=== PATIENT | male | born 1940 | race Caucasian/White ===

== ENCOUNTER 2025-07-03 05:41 | Day surgery (SDC) | payer MEDICARE, OTHER ==
[2025-07-03] VITALS (7 sets, daily range): BP systolic 119–157; BP diastolic 67–96; PULSE 57–70; RESP 11–21; TEMP 97.1; O2SAT 95–98
[~2025-07-03] VITALS: Ht 188 cm; Wt 89.4 kg
[~2025-07-03 05:41] MED LIST: ACET-1025 PO; DOXA4TAB3 PO; ESCI-8 PO; MAGN400C PO; MEMA10TA22 PO; OMEP20CA16 PO; PREVAGEN PO; PSYL0.4C2 PO; TAMS-55 PO; VITAMIN C WITH ZINC PO; ringers solution, lacted 1,000 ML IV SCH
[2025-07-03] MEDS: ceFAZolin 2gm/dext,iso 50mL 50 ML IV ONE (06:00)
[2025-07-03 06:35] LABS: MEAN PLATELET VOLUME 7.5 FL (7.4-10.4); PRE OP HEMATOCRIT 37.0 % (42.0-52.0); PRE OP HEMOGLOBIN 12.4 g/dL (14.0-17.9); PRE OP PLATELET COUNT 312 X10'3 (140-440); PRE OP WHITE BLOOD COUNT 8.0 10'3 (4.8-10.8); RED CELL DISTRIBUTION WIDTH 15.0 % (11.5-14.5)
--- NOTE | 2025-07-03 06:36 | ELECTROCARDIOGRAPH REPORT ---
[facility] Test Date: 2025-07-03 Test Time: 06:34:46 Pat Name: BA WYATT Department: [facility] Patient ID: [id number] Room: Gender: M Catalog Librarian: arnaldo : 1940 Requested By: REMIGIO SMITH Order Number: [id number] Reading MD: Dr. Sergey Galan Measurements Intervals [place] Rate: 62 P: 73 NH: 158 QRS: 46 QRSD: 169 T: -11 QT: 489 QTc: 497 Interpretive Statements Sinus rhythm Atrial premature complexes Right bundle branch block Electronically Signed On 07-07-2025 7:06:[address] Sergey Galan Please click the below link to view image of tracing.
[2025-07-03 07:00] LABS: CREATININE 1.10 MG/DL (0.60-1.10); PRE OP ALT 27 U/L (30-65); PRE OP ANION GAP 9 (8-16); PRE OP AST 23 U/L (10-37); PRE OP BILIRUB, TOTAL 0.6 MG/DL (0.0-1.0); PRE OP GLUCOSE 100 MG/DL (70-104); PRE OP POTASSIUM 4.0 MMOL/L (3.4-5.1); PRE OP SODIUM 140 MMOL/L (135-145); TOTAL CARBON DIOXIDE 24.9 MMOL/L (24-32); eCRCL 58 ML/MIN; eGFR 64 ML/MIN
--- NOTE | 2025-07-03 07:14 | HISTORY AND PHYSICAL ---
History & Physical Providers to CC ~ History of Present Illness Reason for Admit\Complaint: Paraesophageal hernia History of Present Illness Patient has CT scan that shows a large type 3 paraesophageal hernia but has only minimal symptoms. He is unsure as to whether or not he would like to proceed with surgery He has not had an upper endoscopy/EGD before This is an interval history and physical exam He is accompanied by his spouse who denies any change in his past medical history since he was seen in the office (please see previous history and physical exam for all pertinent details) He is scheduled for esophagogastroduodenoscopy with possible biopsy. Allergies: Coded Allergies: No Known Allergies (Unverified , 07/02/25) Home Medications Home Medications Active Reported Metamucil (Psyllium Husk) 0.4 Gram Capsule 1 Cap PO DAILY 30 Days Memantine HCl 10 Mg Tablet 1 Tab PO BID [Vitamin C With Zinc] 1,000 Mg PO DAILY Doxazosin Mesylate 4 Mg Tablet 1 Tab PO DAILY Magnesium (Magnesium Oxide) 400 Mg Magnesium Capsule 1 Cap PO DAILY 30 Days Flomax* (Tamsulosin HCl) 0.4 Mg Cap.sr.24h 1 Cap PO DAILY [Prevagen] 20 Mg PO DAILY Escitalopram Oxalate 10 Mg Tablet 1 Tab PO DAILY Tylenol Extra Strength (Acetaminophen) 500 Mg Tablet 1 Tab PO DAILY PRN 3 Days Omeprazole 20 Mg Capsule.dr 1 Cap PO HS Exam Vitals: Vital Signs Date Time Temp Pulse Resp B/P (MAP) Pulse Ox O2 Delivery O2 Flow Rate FiO2 07/03/25 06:21 70 15 97 07/03/25 05:52 Room Air General: 85-year-old male in no acute distress Chest: Lungs clear to auscultation bilaterally Cardiovascular: Regular rate and rhythm without murmur Abdomen: Soft and nondistended Diagnostic Data Last Recorded Lab Results: 07/03/2517 07/03/25 06 Problems: (1) Paraesophageal hernia Assessment & Plan: The risks, benefits, and alternatives to an esophagogastroduodenoscopy (EGD) with possible biopsy were discussed with the patient and his spouse. Risks include, but are not limited to, bleeding, infection, injury to intra-abdominal structures, perforation and the need for additional procedures. Patient verbalized understanding and wishes to proceed with surgery. We will do so today as scheduled REMIGIO SMITH MD Jul 03, 2025 07:14
[2025-07-03] MEDS ORDERED: propofol inj 20 ML IV ONE ×2 (07:22→07:41)
[2025-07-03] MEDS ORDERED: ringers solution, lacted 1,000 ML IV SCH (07:50)
[2025-07-03] MEDS ORDERED: ondansetron/PF 4mg/2ml inj IV PRN (07:50)
--- NOTE | 2025-07-03 10:55 | OPERATIVE REPORT ---
Operative Report Providers to CC CC: ANG SMITH MD ~ Date of Procedure: Jul 03, 2025 Pre-Operative Diagnosis: Paraesophageal hernia Post-Operative Diagnosis Type 3 paraesophageal hernia LA grade 3 esophagitis Gastric polyps Procedure Performed Esophagogastroduodenoscopy with biopsy Surgeon: Ang Smith MD FACS Optical Designer None Anesthesiologist: Candelario Clark Type of Anesthesia: Other (Monitored anesthesia care) Findings: LA class C esophagitis Hyperplastic polyps in the stomach Very large 8 cm paraesophageal hernia Complications None Prosthetics\Implants used: None Estimated Blood Loss: Minimal Specimen Removed: Gastric polyp EG junction biopsy Description of Procedure: Indication: Paraesophageal hernia Consent: The patient has been informed of: #1. The nature of the procedure #2. The risk, complications, and expected benefits of the procedure. #3. Any alternatives to the procedure and the risks/benefits. Preparation: EKG pulse, blood pressure and oxygen saturation monitoring Anesthesia/sedation: As per hospital record Procedure: The patient was placed in the left lateral decubitus position. The endoscope was introduced through the mouth, advanced through the pharynx, and under direct endoscopic visualization the esophagus was intubated. The scope was passed through the esophagus with identification of the EG junction and into the stomach. The scope was then passed into the antral area with visualization of the pylorus. The pylorus was cannulated and the duodenal bulb and second portion of the duodenum were visualized. The scope was brought back into the stomach where the cardia and fundus were visualized in a retrograde manner. Color, texture, mucosa and anatomy of the esophagus, stomach and duodenum were carefully examined with the scope on insertion and withdrawal. The patient tolerated the procedure well and there were no complications. After completion of the examination, patient was transferred to the recovery room. Findings: Large type 3 paraesophageal hernia with a proximally 8-[address] omach above the hiatus Gastric polyposis. Most consistent with hyperplastic polyps Grade C esophagitis Oropharynx: Normal Esophagus: Normal EG junction: Grade C esophagitis with the GE junction at approximately 32 cm from the incisors Cardia: Normal, above the hiatus Fundus: Normal, a portion above the hiatus with gastric polyps. Hiatal narrowing at 40 cm from the incisors Body: Normal, with scattered gastric polyps Antrum: Normal Pylorus: Normal Duodenal bulb: Normal Second portion: Normal IMPRESSION: -grade C esophagitis with large type 3 paraesophageal hernia -gastric polyps most consistent with benign hyperplastic polyps PLAN: -await pathology results -surgery if hiatal hernia becomes symptomatic ANG SMITH MD Jul 03, 2025 10:54
--- NOTE | 2025-07-04 10:44 | PATHOLOGY REPORT ---
[facility] [address] [place] [address] SURGICAL PATHOLOGY REPORT CaseNumber: [id number] Surgeon:Ang Bajwa M.D. CLINICAL INFORMATION CLINICAL INFORMATION: Not provided. 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 MICROSCOPIC DESCRIPTION A. GASTRIC POLYP, BIOPSY MICROSCOPIC DESCRIPTION: Reviewed is a single H&E-stained slide showing sections on levels of a polypoid fragment of gastric mucosa. Some of the glandular elements are slightly dilated. There is no significant inflammation. There is no intestinal metaplasia. There are no dysplastic or neoplastic features. B. GASTROESOPHAGEAL JUNCTION, BIOPSY MICROSCOPIC DESCRIPTION: Reviewed is a single H&E-stained slide showing sections on levels of a fragment of squamous mucosa associated with an attached portion of gastric-type mucosa. Within the stroma of the gastric mucosa there is minimal inflammation. However, there is a small focus of goblet cell-type intestinal metaplasia. There are no dysplastic or neoplastic features. Within the squamous mucosa, there are occasional lymphocytes in some areas. There are no intramucosal eosinophils or neutrophils. No fungal elements are identified. There are no dysplastic or neoplastic features. GROSS DESCRIPTION A. GASTRIC POLYP, BIOPSY GROSS DESCRIPTION: Received in a container of formalin labeled with the patient's name, number, and "gastric polyp" is a 0.2 cm piece of kaufman tissue. The specimen is entirely submitted as A1. The time at which the specimen was removed was 0735. The time at which the specimen was placed in formalin was 0736. B. GASTROESOPHAGEAL JUNCTION, BIOPSY GROSS DESCRIPTION: Received in a container of formalin labeled with the patient's name, number, and "GE junction BX" is a 0.3 cm piece of kaufman tissue. The specimen is entirely submitted as B1. The time at which the specimen was removed was 0735. The time at which the specimen was placed in formalin was 0736. Electronically signed by: Juan Daniel Garcia M.D. 07/04/2025 10:07:00 AM
== END 2025-07-03 08:37 | disposition home or self-care (01) ==
LOC: GI LAB 05:41
PROVIDERS: ATTEND Surgery
DX: K44.9 Diaphragmatic hernia without obstruction or gangrene (principal); K31.7 Polyp of stomach and duodenum; K21.00 Gastro-esophageal reflux disease with esophagitis, without bleeding; I49.1 Atrial premature depolarization; I45.10 Unspecified right bundle-branch block; I10 Essential (primary) hypertension; F41.9 Anxiety disorder, unspecified; F32.A Depression, unspecified; G47.33 Obstructive sleep apnea (adult) (pediatric); Z79.899 Other long term (current) drug therapy; Z98.41 Cataract extraction status, right eye; Z98.42 Cataract extraction status, left eye; Z98.890 Other specified postprocedural states
CPT/HCPCS: 36415; 43239; 80053; 85025; 93005; A4618; A6402; A7000; J0690; J2270; J2405; J2704; J7120; Z7512; Z7610; 88305; A6449